=== PATIENT | female | born 1975 | race Caucasian/White ===

== ENCOUNTER 2017-08-07 07:04 | Day surgery (SDC) | payer BC ==
--- NOTE | 2017-08-06 20:46 | PDGENHP ---
History and Physical - Chief Complaint Left Hip Pain - History of Present Illness Diagnosis: 1. Bilateral~Femoroacetabular impingement (NEL) Cam type, with~resultant labral tear, LEFT SIDE SYMPTOMATIC - s/p failed hip scope 12/2014 2. Prominent acetabular labral anchor just beneath Hip flexors 3. ~~Neuropathic pain involving entire Left side of body of unclear etiology HISTORY OF PRESENT ILLNESS: Vernais a 41 y.o.~~~active female~who I have had the pleasure to consult on today. I have enjoyed meeting her. She~lives in [place], [place]. 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 ~She~is ; she~has 4~children. ~Vernaenjoys hiking, miki, yoga, biking. Kerri's left~hip pain started in 2011, with no~recalled trauma or injury, and with no~previous complaints. Vernadoes not have~a known history of hip dysplasia. Had hip arthroscopy with labral repair in December 2014 (Dr. Mondragon). No PT prior to surgery, had hip injection. Wasn't able to finish PT because of worsening new anterior/lateral thigh pain. Prior to surgery had groin and posterior pain that never went away. The anterior thigh n/t-type pain has since spread to include her entire left leg, torso, arm and left side of face. Had EMG/NCS in which per patient as completely normal. Has been evaluated by two neurologists and 1 painter and body mechanic apprentice who have not been able to provide her a diagnosis. Whole left side feels heavier than right and has noticed she cannot hear as well out of left ear. Had an injection under ultrasound guidance in November 2016 into hip which took away a significant amount of groin pain, but only for several hours. Pain management physician thinks she has CRPS and is on amitryptiline (now for 2 months) - but does not feel like it has helped her nerve-like pain. Burning, stinging pain involving entire left leg got even worse 2-3 weeks ago when she started a new position at work where she has to sit more. Has had back etiology workup - several months ago, but not since worsening of symptoms. She has been using crutches for the past 3 weeks because of the worsening left leg pain. The pain does not~wake her~at night (now that she has started the amitryptiline ) and the hip does~click and catch on her. Sitting can be a real struggle~for her~- and has gotten worse over the past 3 weeks. Vernadoes not~report suffering from lower back pain episodes. Vernahas not~recently participated in physical therapy and has~tried other conservative measures including hip injections back in November of 2016. She~has not~ received sufficient symptomatic improvement. Vernahas~utilized medication for pain management, including norco 10mg q 5 hrs for > 6 months. Vernadenies issues with the right~hip. ~ Vernaunderstands that she~has a hip and pelvis problem which should be researched and wishes to get a better understanding of her~hip status, followed by an establishment of a treatment strategy, hoping she~would be able to get back to her~well being active life. History: Past medical history: ~ Patient ~has no past medical history on file. Relevant familial history: None which is relevant Past surgical history: 2 x sections, 1 x hip arthroscopy Vernadenies problematic issues with general anesthesia in the past. I have reviewed, verified and agree with the past medical, surgical, family and social history. Current Medications:Gabbiehas a current medication list which includes the following prescription(s): dextroamphetamine-amphetamine, hydrocodone-acetaminophen, and ibuprofen. ALLERGIES:Gabbieis allergic to codeine and oxycodone. Objective: Physical Examination: Vernais 5~feet 0~inches tall and weighs 100~Lbs. Vernais AAO x3; she~is well -nourished, in NAD. Skin is warm and dry. ~Breathing is non-labored. ~CV with RRR by pulse. Abdomen is soft, NTND. Currently, she~walks with a abnormal ~~gait. Trendelenburg sign is negative~and proprioception is reduced, both~sides. She~presents with mild~signs of joint laxity. Beightons Score: 2 ~ Lower spine examination is positive~for sciatic or femoral nerve irritation with positive~SLR &~femoral stretch tests. Range of motion of the spine is normal~for flexion, extension, and rotations, with no~associated pain. Strength, Sensation and pulses are abnormal for decreased sensation in non- dermatomal distribution Ankles and knees exams are normal~and no~mal-alignment is evident. She~has no leg length discrepancy. Thigh circumference is symmetric~with intermediate~muscle atrophy~on both~sides. Hip ROM (degrees): FL ER At 90~hip FL IR At 90~hip FL AB AD EX IR Neutral hip ER Neutral hip R 120 45 40 35 10 5 45 35 L 110 40 40 40 5 5 45 35 Specific hip and pelvis tests: Impingement Test VERONA Roll Add. Longus R Negative Negative Negative Negative L +++ Negative Negative Negative Glut. Med ITB Posterior Imp R Negative 5/5 strength Negative 5/5 strength Negative L Negative 5/5 strength Negative 5/5 strength Negative Squeeze test measured normal Bony Symphysis pubis is pain free~to touch while concentric activity of the rectus abdominis, does not~produce pain at its insertion. Ilio Psos specific tests are positive for pain during cycling for both hips~and remarkable for painful snapping on the left HF has pain on the left hip.~ Posterior left~capsule tenderness Greater trochanteric burse is painful~on both hips~- not why she is her though. Piriformis tests: FAIR is negative, with no~local signs of neuritis related to sciatic nerve. SIJs examination is normal~with normal~VERONA in relation and local tenderness. Hamstrings tests are negative both hips. On a daily basis, the following percentages reflect Kerri's overall total pain: Anterior deep hip: 50% Radiating leg pain: 50% Imaging: Radiology studies which I have personally reviewed, analyzed and measured are below: XR: AP of the hip and pelvis: Performed in a good~technique Coccyx to pubic symphysis distance 2.2~cm. [place] Lines are preserved. No~Pathological signs are seen in the Symphysis Pubis. No~Pathological signs are seen at the Ischial tuberosity. ~ Specific measurements show: NSA~ LCE Sourcil~Angle Sharp's angle Lat. Cam Lat. Pincer C.Over~sign Head~Coverage % ATDmm R 130 38 3 37 N N N 96 + L 130 37 6 39 N N N 92 + Pos. wall sign ISS NAD ~~Dysplasia Comments R Negative Negative 21.2~mm Negative L Negative Negative 18.4~mm Negative Sclerosis Sup. Lat. OA Cysts Joint Space-WBZ Joint Space-Medial R Negative Negative Negative 3.6~mm 2.9~mm L + Negative Negative 3.9~mm 2.7~mm X Table lateral: Anterior cam lesion is seen~on both hips. Alpha Angle: ~ Right 69~dergrees Left 63~degrees MRI shows: from 11/14/16 shows what seems to be a prominent anchor with cystic changes in the bone surrounding it and located~just beneath the hip flexor. Also ~tearing within the lateral labrum. Overall good cartilage within joint. Anterior/lateral labrum seem to be significantly swollen. Impression and plan: Vernais a 41 y.o.~active female~suffering from symptomatic Left~hip pain due to Left~Femoroacetabular impingement (NEL) Cam type, with~resultant labral tear and Prominent labral anchor causing irritation of the hip flexor. She also has~ neuropathic pain not from a source around the hip and of unclear etiology at this point (potentially the acute worsening of her radiating leg pain could be a new lumbar radiculopathy)~causing significant disability to her~and altering her~sport and life activities. Physical examination, imaging, and her~story correspond with the diagnosis mentioned above. I explained that femoroacetabular impingement (NEL) arises due to a bony or soft tissue conflict between the femur (ball) and acetabulum (socket) caused by an abnormality in the shape of the hip joint. Over time, repetitive impingement can result in damage to the labrum and adjacent surface cartilage within the socket, ultimately giving rise to progressive osteoarthritis of the hip. I explained that although a labral tear can be a source of pain, it is rarely the root of the problem and typically occurs secondary to an underlying abnormality in the shape and mechanics of the hip joint. ~ I reviewed conservative treatment options for NEL including activity modification to avoid positions of impingement, physical therapy, non-steroidal anti-inflammatory medications, and various injections (corticosteroid and PRP) aimed at reducing inflammation in the hip joint or/and preventing dynamic impingement. PRP injections may promote healing and reduce symptoms in certain cases but it will not repair chronically damaged tissue. Although these measures may help to buy time and reduce current level of symptoms, they are not a definitive solution to the problem given the underlying abnormality in the shape of the hip joint. Patients who have failed conservative management and continue to experience symptoms are candidates for hip arthroscopy, a minimally invasive surgery that can definitively address the underlying problem. Hip arthroscopy typically includes treating the labrum with either repair or reconstruction of the torn labrum; as well as addressing the underlying abnormalities by restoring the normal shape to the hip joint. ~If the cartilage is damaged a Microfracture surgical procedure may also be necessary to help stimulate the growth of fibrocartilage. ~If a patient requires a labral reconstruction or a Microfracture, the initial rehabilitation from the surgery may take longer, but the adjunct faculty for medical terminology results are typically favorable. I explained that although a labral tear can be a source of pain, it is rarely the root of the problem and typically occurs secondary to an underlying abnormality in the shape and mechanics of the hip joint. Conservative management with rest, activity modification, and PRP injections may promote healing and reduce symptoms in certain cases. When these measures are inadequate , hip arthroscopy is typically performed to repair or reconstruct the torn labrum and address the underlying abnormality in the shape of the hip joint. ~ Hip arthroscopy typically includes treating the labrum with either debridement, repair, or reconstruction of the torn labrum; as well as addressing the underlying abnormalities by restoring the normal shape to the hip joint. ~If the cartilage is damaged a Microfracture procedure may also be necessary to help stimulate the growth of fibrocartilage. ~If a patient requires a labral reconstruction or a Microfracture the initial rehabilitation from the surgery may take longer, but the fci results are typically favorable. I reviewed the technical aspects of hip arthroscopy including risks, benefits, and expected course of recovery. Kerri understands that hip arthroscopy is a minimally invasive outpatient procedure carried out through small incisions on the outer aspect of the hip joint. During surgery, the labral tear will be identified and either repaired or reconstructed using bone anchors and suture material. Additionally, any excessive bone will be removed with a high-speed robbie to reshape the hip joint and restore normal anatomy. Risks include infection, bleeding, injury to nearby nerves or vessels, stiffness, persistent pain, instability, venous thromboembolic disease, and traction related complications including temporary foot numbness. Rarely, revision surgery may be required to address these problems. Overall recovery takes approximately 4 8 months depending on the extent of damage and degree of repair. In the event that the labral tissue quality is inadequate for successful repair and healing, Kerri understands that a labral reconstruction will be performed. This procedure entails placing a cadaver tissue graft within the hip joint and stabilizing it with bone anchors to build a new labrum. The overall recovery time for labral reconstruction is similar to that of labral repair, although the surgical procedure takes longer to perform. I have explained that because of her age and gender, the results of hip arthroscopy are less reproducible/predictable than with younger patients or male patients of the same age. Kerri~will review the info presented. In order to obtain more detailed information regarding the alignment, orientation, and shape of the bony hip and pelvis I will order a CT scan to be performed. The results of the CT scan, including femoral torsion and acetabular version measured values and 3D images, will aid me in deciding on the best treatment strategy and surgical pre-planning. Patient can schedule for surgery as soon as CT has been performed KerriGabbieis happy with this plan. I have also supplied her~with handouts, outlining the expected surgical treatment and rehab involved. I wish~Vernaall the best, ~~ Ama Chappell MD History Information - Allergies/Home Medication List Allergies/Adverse Reactions: codeine Allergy (Mild, Verified 07/19/17 10:07) Vomiting I have personally reviewed and updated: medical history - Social History Smoking Status: Never smoked Review of Systems Review of Systems: Physical Exam Physical Exam:
[2017-08-07] MEDS ORDERED: PREGABALIN 150 MG CAP PO ONE (07:21)
[2017-08-07] MEDS ORDERED: ACETAMINOPHEN 500 MG TAB PO ONE (07:21)
[2017-08-07] MEDS ORDERED: ceFAZolin 2 GM/SWFI 2 GM/20 ML SYR IVP ONE (07:21)
[2017-08-07] MEDS ORDERED: LR 1,000 ML IV ONE (07:23)
[2017-08-07 07:40] VITALS: PULSE 87
[2017-08-07] MEDS ORDERED: AMITRIPTYLINE HCL 50 MG TAB PO ONE (08:49)
[2017-08-07] MEDS ORDERED: MIDAZOLAM 2 MG/2 ML VIAL IVP ONE (08:50)
--- NOTE | 2017-08-07 08:51 | PDANEPAE ---
ANE History of Present Illness Patient presents for L hip scope ANE Past Medical History - Cardiovascular History Hx Hypertension: No Hx Arrhythmias: No Hx Chest Pain: No Hx Coronary Artery / Peripheral Vascular Disease: No Hx CHF / Valvular Disease: No Hx Palpitations: No - Pulmonary History Hx COPD: No Hx Asthma/Reactive Airway Disease: No Hx Recent Upper Respiratory Infection: No Hx Oxygen in Use at Home: No Hx Sleep Apnea: No Sleep Apnea Screening Result - Last Documented: Negative - Neurologic History Hx Cerebrovascular Accident: No Hx Seizures: No Hx Dementia: No - Endocrine History Hx Diabetes: No - Renal History Hx Renal Disorders: No - Liver History Hx Hepatic Disorders: No - Neurological & Psychiatric Hx Hx Neurological and Psychiatric Disorders: Yes Neurological / Psychiatric History Comment: nerve pain to left leg - Cancer History Hx Cancer: No - Congenital Disorder History Hx Congenital Disorders: No - GI History Hx Gastrointestinal Disorders: No - Other Health History Other Health History: none - Chronic Pain History Chronic Pain: No - Surgical History Prior Surgeries: left femoroplasty,labrum repair ANE Review of Systems Review of Systems: - Exercise capacity METS (RN): 4 METS ANE Patient History - Allergies Allergies/Adverse Reactions: codeine Allergy (Mild, Verified 07/19/17 10:07) Vomiting - Home Medications Home medications: home medication list seen and reviewed Home Medications: Amitriptyline HCl [Elavil 50 mg (*)] 50 mg PO HS 08/07/17 [Last Taken 08/04/17] HYDROcodone/APAP 10/325 [[place] 10/325 (*)] 1 tab PO DAILY PRN 08/07/17 [Last Taken 08/06/17 18:00] Herbals/Supplements -Info Only 1 ea PO DAILY 08/07/17 [Last Taken Unknown] - NPO status NPO Status: no food or drink >8 hours NPO Since - Liquids (Date): 08/06/17 NPO Since - Liquids (Time): 22:00 NPO Since - Solids (Date): 08/06/17 NPO Since - Solids (Time): 21:30 - Anes Hx Anes Hx: no prior problems - Smoking Hx Smoking Status: Never smoked - Family Anes Hx Family Hx Anesthesia Complications: none ANE Labs/Vital Signs - Vital Signs Blood Pressure: 88/58 Heart Rate: 87 Respiratory Rate: 16 O2 Sat (%): 99 Height: 152.4 cm Weight: 47.627 kg ANE Physical Exam - Airway Neck exam: FROM Mallampati Score: Class 1 Mouth exam: normal dental/mouth exam - Pulmonary Pulmonary: no respiratory distress - Cardiovascular Cardiovascular: regular rate and rhythym - ASA Status ASA Status: II ANE Anesthesia Plan Anesthesia Plan: general endotracheal anesthesia (RBA discussed)
[2017-08-07] MEDS ORDERED: PROPOFOL 200 MG/20 ML VIAL ONE (09:02)
[2017-08-07] MEDS ORDERED: fentaNYL 100 MCG/2 ML INJ ONE ×3 (09:02→11:32)
[2017-08-07] MEDS ORDERED: PROPOFOL/EMULSION 500 MG/50 ML BOTTLE IV ONE ×2 (09:06→11:51)
[2017-08-07] MEDS ORDERED: EPINEPHrine 30 MG/30 ML MDV (0.1 MG/0.1 ML) ONE (09:27)
[2017-08-07] MEDS ORDERED: BUPIVACAINE 0.25% 30 ML SDV ONE (09:27)
[2017-08-07] MEDS ORDERED: DEXAMETHASONE 4 MG/ML VIAL ONE (09:50)
[2017-08-07] MEDS ORDERED: ONDANSETRON 4 MG/2 ML VIAL ONE (09:50)
[2017-08-07] MEDS ORDERED: DESFLURANE 240 ML BOTTLE IH ONE (09:51)
[2017-08-07] MEDS ORDERED: KETOROLAC 30 MG/1 ML SDV ONE (10:27)
[2017-08-07] MEDS ORDERED: ROCURONIUM 50 MG/5 ML VIAL ONE ×2 (11:49)
[2017-08-07] MEDS ORDERED: HYDROmorphONE/DILAUDID 2 MG/ML INJ ONE (12:01)
[2017-08-07] MEDS ORDERED: ceFAZolin 1 GM VIAL ONE (13:08)
[2017-08-07] MEDS ORDERED: ESMOLOL HCL 100 MG/10 ML VIAL IV ONE (13:31)
[2017-08-07] MEDS ORDERED: LR 500 ML IV PRN (14:14)
[2017-08-07] MEDS ORDERED: ONDANSETRON 4 MG/2 ML VIAL IVP PRN (14:14)
[2017-08-07] MEDS ORDERED: HYDROmorphONE/DILAUDID 1 MG/ML INJ IVP PRN (14:14)
[2017-08-07] MEDS ORDERED: OXYCODONE/APAP 5/325 TAB PO PRN (14:14)
[2017-08-07] MEDS ORDERED: NALOXONE HCL 0.4 MG/ML INJ IVP PRN (14:14)
[2017-08-07] MEDS ORDERED: fentaNYL 100 MCG/2 ML INJ IVP PRN (14:14)
[2017-08-07] MEDS ORDERED: HYDROCODONE/APAP 5/325 TAB PO PRN (14:14)
--- NOTE | 2017-08-07 14:15 | POSTANESTH ---
Post Anesthetic Evaluation Cardiovascular Status: Similar to Pre-Op Cond Respiratory Status: Similar to Pre-op Cond. Level of Consciousness/Mental Status: Can Participate in Eval Pain Control: Adequate, Prn Tx Ordered Nausea/Vomiting Control: Adequate, Prn Tx Ordered Complications Possibly Related to Anesthesia: None Noted
[2017-08-07] MEDS ORDERED: HYDROCODONE/APAP 5/325 TAB ONE (14:32)
[2017-08-07 14:54] VITALS: TEMP 98.8
[2017-08-07 15:05] VITALS: RESP 12
[2017-08-07 15:13] VITALS: BP 94/56
[2017-08-07 17:02] VITALS: O2SAT 95
== END 2017-08-07 16:55 | disposition home or self-care (01) ==
LOC: FSGY 07:04
PROVIDERS: ATTEND Orthopaedic Surgery Sports Medicine
PROC: 0SQB4ZZ Repair Left Hip Joint, Percutaneous Endoscopic Approach (ICD-10-PCS; principal; 2017-08-07 09:00)
DX: M25.852 Other specified joint disorders, left hip (principal); M76.9 Unspecified enthesopathy, lower limb, excluding foot
CPT/HCPCS: C1713; C1762; J0171; J0690; J1100; J1170; J1885; J2250; J2405; J2704; J3010